=== PATIENT | female | born 1990 | race Two or more races ===

== ENCOUNTER 2019-11-09 17:12 | Emergency (ER) | payer BC, MEDICAID, OTHER ==
[~2019-11-09] VITALS: Ht 170.2 cm; Wt 69.9 kg
[~2019-11-09 17:12] MED LIST: AZAT75TA PO; CIPR-262 PO; LEVO137T24 PO; METR500T PO; OMEP20TA5 PO; PRED10TA PO; PROP10TA10 PO
--- NOTE | 2019-11-09 17:24 | NUR ---
c/o generalized pain x 3 weeks, pt aaox4, -sob, nad noted, vss ,pending md hammond
--- NOTE | 2019-11-09 17:44 | NUR ---
urine collected and sent to lab
[2019-11-09] MEDS ORDERED: PANTOPRAZOLE 40 MG VIAL ONE (17:50)
[2019-11-09] MEDS ORDERED: ONDANSETRON HCL/PF 4 MG/2 ML VIAL ONE (17:50)
[2019-11-09] MEDS ORDERED: MORPHINE SULFATE INJ 4 MG/ML DISP.SYRIN ONE (17:51)
[2019-11-09 17:53] LABS: HEMOGLOBIN 8.9 g/dL (11.5-14.8); LYMPHOCYTES # (AUTO) 0.2 /CMM (0.8-4.8); MONOCYTES # (AUTO) 0.2 /CMM (0.1-1.30); MONOCYTES % (AUTO) 12.4 % (2.0-12.0); NEUTROPHILS # (AUTO) 0.9 /CMM (1.8-8.9)
[2019-11-09 17:56] LABS: APPEARANCE,URINE Clear (CLEAR); BILIRUBIN,URINE Negative (NEGATIVE); BLOOD, URINE Negative Ery/uL (NEGATIVE); COLOR,URINE Yellow (YELLOW); KETONES,URINE Negative (NEGATIVE); LEUKOCYTE ESTERASE ,URINE Negative (NEGATIVE); NITRITE, URINE Negative (NEGATIVE); PH,URINE 6.5 (5.0-8.0); PROTEIN,URINE Negative (NEGATIVE); UGLUCOSE Negative (NEGATIVE)
[2019-11-09] MEDS ORDERED: PANTOPRAZOLE 40 MG VIAL IV ONE (18:00)
[2019-11-09] MEDS ORDERED: MORPHINE SULFATE INJ 2 MG/ML DISP.SYRIN IV ONE (18:00)
[2019-11-09] MEDS ORDERED: ONDANSETRON HCL/PF 4 MG/2 ML VIAL IVP ONE (18:00)
[2019-11-09] MEDS ORDERED: IV NS 0.9% 1,000 ML BAG IV ONE (18:00)
[2019-11-09 18:02] LABS: BASOPHILS % (AUTO) 1.7 % (0.0-2.0); EOSINOPHILS % (AUTO) 0.9 % (0.0-6.0); HEMATOCRIT 29 % (33-45); LYMPHOCYTES % (AUTO) 14.1 % (20.0-44.0); MEAN CORPUSCULAR HGB CONC 31 g/dl (31.0-36.0); MEAN CORPUSCULAR VOLUME 65 fL (82-100); NEUTROPHILS % (AUTO) 70.9 % (43.0-81.0); RED BLOOD CELL COUNT(AUTO) 4.38 MIL/uL (4.0-5.2)
[2019-11-09 18:03] LABS: BACTERIA,URINE Rare /HPF (None Seen); RBC,URINE NONE SEEN /HPF (0-2); SQUAMOUS EPITHELIAL CELL,UR Few /HPF (None Seen); WBC,URINE NONE SEEN /HPF (0-3)
[2019-11-09 18:05] LABS: PLATELET COUNT (AUTO) 24 /CMM (150-450); WHITE BLOOD COUNT (AUTO) 1.3 K/uL (4.3-11.0)
[2019-11-09 18:16] LABS: ALBUMIN 3.5 g/dL (3.4-5.0); BILIRUBIN,DIRECT 0.2 mg/dL (0.0-0.2); BILIRUBIN,TOTAL 0.9 mg/dL (0.2-1.0); CALCIUM, SERUM 7.8 mg/dL (8.5-10.1); CREATININE 0.5 mg/dL (0.6-1.3); POTASSIUM 3.2 mmol/L (3.5-5.1); TOTAL PROTEIN, SERUM 7.3 g/dL (6.4-8.2)
[2019-11-09 19:44] LABS: BAND % (MANUAL) 2 % (0.0-5.0); LYMPHOCYTES % (MANUAL) 16 % (16-48); MONOCYTES % (MANUAL) 10 % (0-11.0); NEUTROPHILS % (MANUAL) 72 (42-76)
[2019-11-09 19:54] VITALS: BP 93/59
[2019-11-09] MEDS ORDERED: ACETAMINOPHEN ES 500 MG TABLET ONE (21:05)
--- NOTE | 2019-11-09 21:18 | NUR ---
Patient discharged to home in stable condition. Written and verbal after care instructions given. Patient verbalizes understanding of instruction. IV removed. Catheter intact and site benign. Pressure and 4x4 applied to site. No bleeding noted.
[2019-11-09] MEDS ORDERED: ACETAMINOPHEN ES 500 MG TABLET PO ONE (21:30)
== END 2019-11-09 21:18 | disposition home or self-care (01) ==
LOC: ER 17:17
DX: D61.818 Other pancytopenia (principal); M35.9 Systemic involvement of connective tissue, unspecified; R10.13 Epigastric pain; F17.200 Nicotine dependence, unspecified, uncomplicated; D64.9 Anemia, unspecified; Z98.890 Other specified postprocedural states; Z85.850 Personal history of malignant neoplasm of thyroid; Z79.899 Other long term (current) drug therapy
CPT/HCPCS: 36415; 70450; 71045; 74176; 80048; 80076; 81001; 83690; 84703; 85025; 85730; 96374; 96375; 99284; C9113; J2270; J2405; J7030; 81000-TC

== ENCOUNTER 2020-01-03 15:08 | Emergency (ER) | payer BC, OTHER ==
[~2020-01-03] VITALS: Ht 170.2 cm; Wt 68.0 kg
[2020-01-03 15:16] VITALS: BP 117/71
== END 2020-01-03 15:45 | disposition home or self-care (01) ==
LOC: ER 15:15
DX: H10.89 Other conjunctivitis (principal); F17.200 Nicotine dependence, unspecified, uncomplicated; Z98.890 Other specified postprocedural states; Z79.899 Other long term (current) drug therapy; Z85.850 Personal history of malignant neoplasm of thyroid

== ENCOUNTER 2020-02-16 15:00 | Emergency (ER) | payer BC, OTHER ==
[~2020-02-16] VITALS: Ht 170.2 cm; Wt 70.3 kg
[2020-02-16 15:35] VITALS: BP 118/63
== END 2020-02-16 16:22 | disposition home or self-care (01) ==
LOC: ER 15:00
DX: J06.9 Acute upper respiratory infection, unspecified (principal); Z86.19 Personal history of other infectious and parasitic diseases; Z85.850 Personal history of malignant neoplasm of thyroid; Z90.89 Acquired absence of other organs; Z79.899 Other long term (current) drug therapy

== ENCOUNTER 2020-06-27 17:59 | Emergency (ER) | payer BC, SELFPAY ==
[~2020-06-27] VITALS: Ht 170.2 cm; Wt 74.8 kg
[2020-06-27] MEDS ORDERED: IV NS 0.9% 1,000 ML BAG IV ONE (18:30)
[2020-06-27] MEDS: ONDANSETRON HCL/PF - ER 4 MG/2 ML VIAL IV ONE ×2 (18:33→19:17)
--- NOTE | 2020-06-27 18:42 | NUR ---
BIBS FROM HOME TO ER BED 6. AAOX4. NOT IN RESP DISTRESS. AMBUALTORY. CAME IN FOR EPIGASTRIC ABDOMINAL PAIN, FEVER AND DIARRHEA. PER PT, SYMPTOMS STARTED AROUND 1530. PT TOOK IBUPROPHEN FOR THE FEVER. ORAL TEMP NOTED @ 100.6. PT DENIES NAUSEA NOR VOMMITING. WAS AT THE BEDSIDE FOR EVAL. ORDERS RECEIVED NOTED AND CARRIED OUT. IV LINE OBTAINED ON L AC 18G. BLOOD DRAWN AND SENT TO LAB.
[2020-06-27 18:51] LABS: BASOPHILS % (AUTO) 0.5 % (0.0-2.0); EOSINOPHILS % (AUTO) 1.7 % (0.0-6.0); HEMATOCRIT 40 % (33-45); HEMOGLOBIN 13.2 g/dL (11.5-14.8); LYMPHOCYTES # (AUTO) 0.4 /CMM (0.8-4.8); LYMPHOCYTES % (AUTO) 14.6 % (20.0-44.0); MEAN CORPUSCULAR HGB CONC 33 g/dl (31.0-36.0); MEAN CORPUSCULAR VOLUME 80 fL (82-100); MONOCYTES # (AUTO) 0.2 /CMM (0.1-1.30); MONOCYTES % (AUTO) 8.5 % (2.0-12.0); NEUTROPHILS % (AUTO) 74.7 % (43.0-81.0); WHITE BLOOD COUNT (AUTO) 2.7 K/uL (4.3-11.0)
[2020-06-27] MEDS ORDERED: ONDANSETRON HCL/PF 4 MG/2 ML VIAL ONE (18:51)
[2020-06-27 18:53] LABS: PLATELET COUNT (AUTO) 43 /CMM (150-450)
[2020-06-27 18:59] LABS: APPEARANCE,URINE Clear (CLEAR); BILIRUBIN,URINE Negative (NEGATIVE); BLOOD, URINE Negative Ery/uL (NEGATIVE); COLOR,URINE Yellow (YELLOW); KETONES,URINE Negative (NEGATIVE); LEUKOCYTE ESTERASE ,URINE Negative (NEGATIVE); NITRITE, URINE Negative (NEGATIVE); PROTEIN,URINE Negative (NEGATIVE); UGLUCOSE Negative (NEGATIVE); UROBILINOGEN,URINE 0.2 EU/dL (0.2)
--- NOTE | 2020-06-27 19:05 | NUR ---
MADE AWARE THAT PT IS UNABLE TO PROVIDE STOOL SAMPLE BECAUSE SHE DOES NOT HAVE THE URGE AT THIS TIME.
[2020-06-27 19:06] LABS: CALCIUM, SERUM 8.4 mg/dL (8.5-10.1); CARBON DIOXIDE 24 mmol/L (21-32); CHLORIDE 107 mmol/L (98-107); CREATININE 0.6 mg/dL (0.6-1.3); GLUCOSE 87 mg/dL (74-106); POTASSIUM 3.4 mmol/L (3.5-5.1); SODIUM SERUM 140 mmol/L (136-145); UREA NITROGEN, BLOOD 9 mg/dL (7-18)
[2020-06-27 19:11] LABS: ALANINE AMINOTRANSFERASE 73 U/L (12-78); ALBUMIN 3.5 g/dL (3.4-5.0); ALKALINE PHOSPHATASE 101 U/L (46-116); ASPARTATE AMINOTRANSFERASE 60 U/L (15-37); BILIRUBIN,DIRECT 0.4 mg/dL (0.0-0.2); BILIRUBIN,TOTAL 1.3 mg/dL (0.2-1.0); TOTAL PROTEIN, SERUM 7.1 g/dL (6.4-8.2)
[2020-06-27 19:14] LABS: ALCOHOL, BLOOD < 3 mg/dL (0-0); MAGNESIUM 1.9 mg/dL (1.8-2.4)
[2020-06-27] MEDS ORDERED: POTASSIUM CHLORIDE 20 MEQ TAB.PRT.SR PO ONE ×2 (20:30→20:36)
--- NOTE | 2020-06-27 20:42 | NUR ---
COVID SWAB DONE.
[2020-06-27 20:43] LABS: BAND % (MANUAL) 5 % (0.0-5.0); EOSINOPHILS % (MANUAL) 1 % (0-4); LYMPHOCYTES % (MANUAL) 18 % (16-48); MONOCYTES % (MANUAL) 7 % (0-11.0); NEUTROPHILS % (MANUAL) 69 (42-76)
[2020-06-27] MEDS ORDERED: ACETAMINOPHEN 325 MG TABLET PO ONE (22:00)
[2020-06-27] MEDS ORDERED: ACETAMINOPHEN 325 MG TABLET ONE (22:03)
--- NOTE | 2020-06-27 22:11 | NUR ---
Patient discharged to home in stable condition. Written and verbal after care instructions given. Patient verbalizes understanding of instruction.IV removed. Catheter intact and site benign. Pressure and 4x4 applied to site. No bleeding noted. Pt ambulatory with a steady
[2020-06-27 22:14] VITALS: BP 107/69
== END 2020-06-27 22:15 | disposition home or self-care (01) ==
LOC: ER 18:08
DX: E86.0 Dehydration (principal); R19.7 Diarrhea, unspecified; E87.6 Hypokalemia; F41.9 Anxiety disorder, unspecified; K74.60 Unspecified cirrhosis of liver; B15.9 Hepatitis A without hepatic coma; D69.3 Immune thrombocytopenic purpura; Z85.850 Personal history of malignant neoplasm of thyroid; E89.0 Postprocedural hypothyroidism; Z79.890 Hormone replacement therapy; R94.31 Abnormal electrocardiogram [ECG] [EKG]
CPT/HCPCS: 36415; 71045; 80048; 80076; 80305; 80307; 81001; 83605; 83735; 84145; 84484; 84702; 85025; 85730; 87040 ×2; 87086; 87426; 93005; 96361; 96374; 99285; J2405 ×2; J7030; J7040; 81000-TC; G0480

== ENCOUNTER 2021-03-14 22:57 | Emergency (ER) | payer SELFPAY ==
[~2021-03-14] VITALS: Ht 170.2 cm; Wt 69.4 kg
--- NOTE | 2021-03-14 23:00 | NUR ---
PT BIBSELF C/O L FLANK PAIN WITH DYSURIA AND URINARY FREQUENCY X2 DAYS. PT AAOX4. VITAL SIGNS STABLE. RESPIRATIONS EVEN AND UNLABORED. AMBULATORY WITH STEADY GAIT. NO ACUTE DISTRESS NOTED AT THIS TIME. WILL CONTINUE TO MONITOR
--- NOTE | 2021-03-14 23:10 | NUR ---
PT AMBULATORY TO RESTROOM WITH STEADY GAIT. URINE COLLECTED AND SENT TO LAB
[2021-03-14 23:28] LABS: BILIRUBIN,URINE NEGATIVE (NEGATIVE); COLOR,URINE YELLOW (YELLOW); LEUKOCYTE ESTERASE ,URINE SMALL (NEGATIVE); NITRITE, URINE NEGATIVE (NEGATIVE); PROTEIN,URINE NEGATIVE (NEGATIVE); UGLUCOSE NEGATIVE (NEGATIVE)
[2021-03-14 23:37] LABS: BACTERIA,URINE Many /HPF (None Seen); SQUAMOUS EPITHELIAL CELL,UR Moderate /HPF (None Seen)
[2021-03-14 23:38] LABS: WBC,URINE 81-100 /HPF (0-3)
[2021-03-14] MEDS ORDERED: NAPR-1164 PO (23:44)
[2021-03-14] MEDS ORDERED: PHEN-705 PO (23:44)
[2021-03-14] MEDS ORDERED: SULF1TAB48 PO (23:56)
[2021-03-15] VITALS: BP 124/77
--- NOTE | 2021-03-15 | NUR ---
Patient discharged to home in stable condition. Written and verbal after care instructions given. Patient verbalizes understanding of instruction.Pt ambulatory with a steady gait
== END 2021-03-15 00:01 | disposition home or self-care (01) ==
LOC: ER 23:00
DX: N39.0 Urinary tract infection, site not specified (principal); D64.9 Anemia, unspecified; Z98.890 Other specified postprocedural states; Z79.899 Other long term (current) drug therapy
CPT/HCPCS: 81001; 84703-TC; 87086-TC; 87186-TC

== ENCOUNTER 2021-10-16 00:31 | Emergency (ER) | payer SELFPAY ==
[~2021-10-16] VITALS: Ht 170.2 cm; Wt 72.1 kg
[~2021-10-16 00:31] MED LIST changes: +NAPR-1164 PO; +PHEN-705 PO; +SULF1TAB48 PO
[2021-10-16] MEDS ORDERED: ONDANSETRON HCL/PF 4 MG/2 ML VIAL ONE (00:58)
--- NOTE | 2021-10-16 00:59 | NUR ---
PT AAOX4. BIBS C/O MID EPIGASTRIC PAIN +N/V/D. PLACED IN BED 1 ON MONITOR AND PULSES OX. LINE ESTABLISHED, BLOOD WORK COLLECTED, SENT TO LAB.
[2021-10-16] MEDS ORDERED: IV NS 0.9% 1,000 ML BAG IV ONE (01:00)
[2021-10-16] MEDS ORDERED: ONDANSETRON HCL/PF 4 MG/2 ML VIAL IVP ONE (01:00)
[2021-10-16 01:11] LABS: BASOPHILS % (AUTO) 0.8 % (0.0-2.0); EOSINOPHILS % (AUTO) 2.4 % (0.0-6.0); HEMATOCRIT 36 % (33-45); HEMOGLOBIN 11.8 g/dL (11.5-14.8); LYMPHOCYTES # (AUTO) 0.5 K/uL (0.8-4.8); LYMPHOCYTES % (AUTO) 16.3 % (20.0-44.0); MEAN CORPUSCULAR HGB CONC 33 g/dl (31.0-36.0); MEAN CORPUSCULAR VOLUME 80 fL (82-100); MONOCYTES # (AUTO) 0.3 K/uL (0.1-1.30); MONOCYTES % (AUTO) 8.9 % (2.0-12.0); NEUTROPHILS # (AUTO) 2.4 K/uL (1.8-8.9); NEUTROPHILS % (AUTO) 71.6 % (43.0-81.0); RED BLOOD CELL COUNT(AUTO) 4.52 MIL/uL (4.0-5.2); WHITE BLOOD COUNT (AUTO) 3.3 K/uL (4.3-11.0)
[2021-10-16 01:15] LABS: BILIRUBIN,URINE NEGATIVE (NEGATIVE); COLOR,URINE YELLOW (YELLOW); LEUKOCYTE ESTERASE ,URINE TRACE (NEGATIVE); NITRITE, URINE POSITIVE (NEGATIVE); PROTEIN,URINE NEGATIVE (NEGATIVE); UGLUCOSE NEGATIVE (NEGATIVE)
[2021-10-16] MEDS ORDERED: KETOROLAC TROMETHAMINE INJ 30 MG/ML VIAL ONE (01:31)
[2021-10-16 01:44] LABS: BACTERIA,URINE Many /HPF (None Seen); RBC,URINE 0-2 /HPF (0-2); SQUAMOUS EPITHELIAL CELL,UR Few /HPF (None Seen)
[2021-10-16] MEDS ORDERED: MORPHINE SULFATE INJ 4 MG/ML DISP.SYRIN ONE (01:59)
[2021-10-16] MEDS ORDERED: MORPHINE SULFATE INJ 2 MG/ML DISP.SYRIN IV ONE (02:00)
[2021-10-16] MEDS ORDERED: KETOROLAC TROMETHAMINE INJ 30 MG/ML VIAL IV ONE (02:00)
[2021-10-16 02:27] LABS: CALCIUM, SERUM 7.4 mg/dL (8.5-10.1); CREATININE 0.7 mg/dL (0.6-1.3); POTASSIUM 3.5 mmol/L (3.5-5.1)
[2021-10-16 02:32] LABS: ALBUMIN 2.9 g/dL (3.4-5.0); BILIRUBIN,DIRECT 0.2 mg/dL (0.0-0.2); BILIRUBIN,TOTAL 0.9 mg/dL (0.2-1.0); TOTAL PROTEIN, SERUM 7.1 g/dL (6.4-8.2)
[2021-10-16 02:34] LABS: PLATELET COUNT (AUTO) 55 K/uL (150-450)
--- NOTE | 2021-10-16 02:36 | NUR ---
US AT BEDSIDE
[2021-10-16 02:37] LABS: EOSINOPHILS % (MANUAL) 2 % (0-4); LYMPHOCYTES % (MANUAL) 12 % (16-48); MONOCYTES % (MANUAL) 8 % (0-11.0); NEUTROPHILS % (MANUAL) 78 (42-76)
--- NOTE | 2021-10-16 03:38 | NUR ---
Patient does not wish to proceed with medical care recommended by Dr. harmon. Patient given information related to possible complications, up to and including , which could occur as a result of leaving the hospital at this time. Patient verbalizes understanding of risks involved due to leaving against medical advice. Patient has signed AMA form.
[2021-10-16 03:40] VITALS: BP 126/76
== END 2021-10-16 03:43 | disposition home or self-care (01) ==
LOC: ER 00:41
DX: R10.13 Epigastric pain (principal); R11.2 Nausea with vomiting, unspecified; F17.200 Nicotine dependence, unspecified, uncomplicated; Z98.890 Other specified postprocedural states; Z79.899 Other long term (current) drug therapy
CPT/HCPCS: 36415; 71045; 76705; 80048; 80076; 81001; 83690; 84703; 85007; 85025; 87086; 96361; 96374; 96375; 99285; J1885; J2405; J7030; 87186-TC; J2270

== ENCOUNTER 2022-04-13 12:28 | Emergency (ER) | payer BC, MEDICAID ==
[~2022-04-13] VITALS: Ht 170.2 cm; Wt 72.6 kg
--- NOTE | 2022-04-13 12:40 | NUR ---
Recived pt 31 yrs female c/o abdominl pain for 3 days no n/v
[2022-04-13] MEDS ORDERED: MORPHINE SULFATE INJ 2 MG/ML DISP.SYRIN IV ONE (13:00)
[2022-04-13] MEDS ORDERED: ONDANSETRON HCL/PF 4 MG/2 ML VIAL IVP ONE (13:00)
[2022-04-13] MEDS ORDERED: PANTOPRAZOLE 40 MG VIAL IV ONE (13:00)
[2022-04-13] MEDS ORDERED: ONDANSETRON HCL/PF 4 MG/2 ML VIAL ONE (13:02)
[2022-04-13] MEDS ORDERED: PANTOPRAZOLE 40 MG VIAL ONE (13:02)
--- NOTE | 2022-04-13 13:05 | NUR ---
pt sighn the waver for possible pregnace c xray done pt refused morphin shut dr. WARD aware
[2022-04-13 13:09] LABS: HEMOGLOBIN 12.6 g/dL (11.5-14.8); MEAN CORPUSCULAR VOLUME 78 fL (82-100); MONOCYTES # (AUTO) 0.3 K/uL (0.1-1.30)
[2022-04-13 13:22] LABS: BILIRUBIN,URINE NEGATIVE (NEGATIVE); COLOR,URINE YELLOW (YELLOW); LEUKOCYTE ESTERASE ,URINE SMALL (NEGATIVE); NITRITE, URINE NEGATIVE (NEGATIVE); PROTEIN,URINE NEGATIVE (NEGATIVE); UGLUCOSE NEGATIVE (NEGATIVE)
[2022-04-13 13:26] LABS: BASOPHILS % (AUTO) 0.4 % (0.0-2.0); EOSINOPHILS % (AUTO) 1.6 % (0.0-6.0); HEMATOCRIT 38 % (33-45); LYMPHOCYTES # (AUTO) 0.5 K/uL (0.8-4.8); LYMPHOCYTES % (AUTO) 14.1 % (20.0-44.0); MEAN CORPUSCULAR HGB CONC 33 g/dl (31.0-36.0); MONOCYTES % (AUTO) 8.8 % (2.0-12.0); NEUTROPHILS # (AUTO) 2.8 K/uL (1.8-8.9); NEUTROPHILS % (AUTO) 75.1 % (43.0-81.0); PLATELET COUNT (AUTO) 60 K/uL (150-450); RED BLOOD CELL COUNT(AUTO) 4.86 MIL/uL (4.0-5.2); WHITE BLOOD COUNT (AUTO) 3.7 K/uL (4.3-11.0)
--- NOTE | 2022-04-13 13:30 | NUR ---
to CT SCAN Of abdomin via WC STABLE VS AND CONDITION
[2022-04-13 13:39] LABS: ALBUMIN 2.9 g/dL (3.4-5.0); BILIRUBIN,DIRECT 0.3 mg/dL (0.0-0.2); BILIRUBIN,TOTAL 1.4 mg/dL (0.2-1.0); CALCIUM, SERUM 7.5 mg/dL (8.5-10.1); CREATININE 0.6 mg/dL (0.6-1.3); POTASSIUM 3.4 mmol/L (3.5-5.1); TOTAL PROTEIN, SERUM 7.4 g/dL (6.4-8.2)
[2022-04-13 13:49] LABS: BACTERIA,URINE Rare /HPF (None Seen); SQUAMOUS EPITHELIAL CELL,UR Few /HPF (None Seen)
[2022-04-13 13:50] LABS: MUCUS,URINE Moderate /LPF (None Seen)
[2022-04-13] MEDS ORDERED: PANT40TA2 PO (13:57)
[2022-04-13] MEDS ORDERED: TRAM50TA2 PO (13:57)
[2022-04-13] MEDS ORDERED: MAG HYDROX/AL HYDROX/SIMETH 30 ML UDC PO ONE (14:00)
[2022-04-13] MEDS ORDERED: TRAMADOL HCL 50 MG TABLET PO ONE (14:00)
[2022-04-13] MEDS ORDERED: LIDOCAINE VISCOUS 2% UD 15 ML UDC MM ONE (14:00)
--- NOTE | 2022-04-13 14:12 | NUR ---
IV removed. Catheter intact and site benign. Pressure and 4x4 applied to site. No bleeding noted.Patient discharged to home in stable condition. Written and verbal after care instructions given. Patient verbalizes understanding of instruction.
[2022-04-13 14:18] VITALS: BP 134/69
[2022-04-13 18:43] LABS: EOSINOPHILS % (MANUAL) 2 % (0-4); LYMPHOCYTES % (MANUAL) 11 % (16-48); MONOCYTES % (MANUAL) 5 % (0-11.0); NEUTROPHILS % (MANUAL) 82 (42-76)
== END 2022-04-13 14:21 | disposition home or self-care (01) ==
LOC: ER 12:34
DX: R10.10 Upper abdominal pain, unspecified (principal); G43.909 Migraine, unspecified, not intractable, without status migrainosus; E03.9 Hypothyroidism, unspecified; F32.A Depression, unspecified; F41.9 Anxiety disorder, unspecified; F17.200 Nicotine dependence, unspecified, uncomplicated; Z79.899 Other long term (current) drug therapy
CPT/HCPCS: 36415; 71045; 74176; 80048; 80076; 81001; 82140; 83690; 84703; 85007; 85025; 87086; 93005; 96374; 96375; 99285; C9113; J2405